=== PATIENT | male | born 1965 | race Caucasian/White ===

== ENCOUNTER 2016-07-08 17:44 | Emergency (ER) | payer MEDICAID, OTHER ==
[2016-07-08] MEDS ORDERED: HYDROmorphone 0.5 MG/0.5 ML Syringe IVPUSH ONE (19:39)
--- NOTE | 2016-07-08 19:41 | EDM.PDOC ---
[id number] 4d ABDOMINAL PAIN Time Seen by Provider: 07/08/16 18:10 Source: Reports: Patient, Family History Limitations: Reports: No limitations - History of Present Illness INITIAL COMMENTS - FREE TEXT/NARRATIVE: 51-year-old male who has had lower abdominal pain for the past 3 days, feel some urinary urgency but no dysuria. No radiation of pain to his back. Bowel seemed to be moving normally, no nausea or vomiting. Denies any fevers. He has no history of abdominal surgeries. No chest pain or shortness of breath. Location: suprapubic Quality: Reports: ache, cramping Severity: moderate Associated Symptoms: Denies: diarrhea, bloody stools, fever/chills, nausea/ vomiting - Related Data Allergies/ADRs: Allergies Allergy/AdvReac Type Severity Reaction Status Date / Time No Known Allergies Allergy Verified 02/29/16 01:38 Home Meds: Home Meds ALPRAZolam [Alprazolam] 1 mg PO BEDTIME 02/29/16 [History] Past Medical History - Past Health History Medical/Surgical History: Denies Medical/Surgical History Psychiatric History: Reports: Anxiety - Infectious Disease History Infectious Disease History: Reports: Chicken pox Social & Family History - Tobacco Use Smoking Status *Q: Light Tobacco Smoker Years of Tobacco use: 26 Packs/Tins Daily: 0.1 - Caffeine Use Caffeine Use: Reports: Soda - Recreational Drug Use Recreational Drug Use: No ED ROS GENERAL - Review of Systems Review Of Systems: See Below Constitutional: Denies: fever, chills, malaise Respiratory: Denies: Shortness of Breath Cardiovascular: Denies: Chest pain GI/Abdominal: Reports: Abdominal pain. Denies: Diarrhea, Nausea : Reports: frequency, urgency. Denies: dysuria Skin: Reports: no symptoms Neurological: Denies: Headache Psychiatric: Reports: Anxiety ED EXAM, GI/ABD - Physical Exam Exam: See Below Exam Limited By: No limitations General Appearance: alert, no apparent distress (Looks uncomfortable but not distressed) Eyes: bilateral: normal appearance (No jaundice) Respiratory/Chest: no respiratory distress, lungs clear Cardiovascular: regular rate, rhythm, tachycardia GI/Abdominal: soft, tenderness, guarding (Patient is tender across the suprapubic area with some guarding but no rebound tenderness) (Male) Exam: Other (Bladder scan was obtained, no urinary retention is present) Rectal (Males) Exam: Normal exam, Other ( rectum was empty) Neurological: alert Psychiatric: anxious Skin Exam: Warm, Dry Course - Vital Signs Last Recorded V/S: Last Vital Signs Temp 98.9 F 07/08/16 19:29 Pulse 66 07/08/16 20:41 Resp 16 07/08/16 20:41 BP 127/87 07/08/16 20:41 Pulse Ox 100 07/08/16 20:41 - Orders/Labs/Meds Orders: Active Orders 24 hr Category Date Time Status Abdomen Pelvis w Cont [CT] Stat Exams 07/08/16 19:40 Taken CULTURE URINE [RM] Stat Lab 07/08/16 20:39 Received Labs: Laboratory Tests 07/08/16 07/08/16 07/08/16 Range/Units 18:54 18:54 18:54 WBC 4.1 L (4.5-11.0) K/uL RBC 4.06 L (4.30-5.90) M/uL Hgb 14.2 (12.0-15.0) g/dL Hct 39.8 L (40.0-54.0) % MCV 98 (80-98) fL MCH 35 H (27-31) pg MCHC 36 (32-36) % Plt Count 105 L (150-400) K/uL Neut % (Auto) 54 (36-66) % Lymph % (Auto) 25 (24-44) % Russell % (Auto) 18 H (2-6) % Eos % (Auto) 2 (2-4) % Baso % (Auto) 1 (0-1) % Sodium 135 L (140-148) mmol/L Potassium 4.3 (3.6-5.2) mmol/L Chloride 96 L (100-108) mmol/L Carbon Dioxide 28 (21-32) mmol/L Anion Gap 15.3 H (5.0-14.0) mmol/L BUN 14 (7-18) mg/dL Creatinine 1.1 (0.8-1.3) mg/dL Est Cr Clr Drug Dosing 83.67 mL/min Estimated GFR (MDRD) > 60 (>60) Glucose 110 H (74-106) mg/dL Calcium 8.9 (8.5-10.1) mg/dL Total Bilirubin 1.7 H (0.2-1.0) mg/dL AST 144 H (15-37) U/L ALT 143 H (12-78) U/L Alkaline Phosphatase 65 (46-116) U/L Total Protein 7.2 (6.4-8.2) g/dL Albumin 3.6 (3.4-5.0) g/dL Globulin 3.6 H (2.3-3.5) g/dL Albumin/Globulin Ratio 1.0 L (1.2-2.2) Urine Color [place] Urine Appearance Clear Urine pH 5.0 (4.5-8.0) Ur Specific [place] 1.015 (1.008-1.030) Urine Protein Trace (NEGATIVE) mg/dL Urine Glucose (UA) Normal (NEGATIVE) mg/dL Urine Ketones 15 H (NEGATIVE) mg/dL Urine Occult Blood Negative (NEGATIVE) Urine Nitrite Positive H (NEGAITVE) Urine Bilirubin Moderate (NEGATIVE) Urine Urobilinogen >=12 H (NORMAL) mg/dL Ur Leukocyte Esterase Small (NEGATIVE) Urine RBC 0-5 (0-5) Urine WBC 0-5 (0-5) Ur Epithelial Cells Not seen Amorphous Sediment Not seen Urine Bacteria Few Urine Mucus Not seen Meds: Medications Discontinued Medications Generic Name Dose Route Start Last Admin Trade Name Freq PRN Reason Stop Dose Admin Hydromorphone HCl 0.5 mg 07/08/16 19:39 07/08/16 19:55 Dilaudid IVPUSH 07/08/16 19:40 0.5 mg ONETIME ONE Administration Sodium Chloride 1,000 mls @ 500 mls/hr 07/08/16 19:45 07/08/16 19:54 Normal Saline IV 500 mls/hr ASDIRECTED LUIS Administration Sodium Chloride 81 mls @ 3 mls/sec 07/08/16 20:13 07/08/16 20:24 Normal Saline IV 07/08/16 20:14 3 mls/sec ONETIME ONE Administration Iopamidol 136 ml 07/08/16 20:15 07/08/16 20:24 Isovue-300 (61%) IV 150 ml . DIRECTED LUIS Administration Sodium Chloride 10 ml 07/08/16 20:13 07/08/16 20:24 Saline Flush FLUSH 10 ml ONETIME PRN Administration PER RADIOLOGY PROTOCOL - Re-Assessments/Exams Free Text/Narrative Re-Assessment/Exam: 07/08/16 20:04 A UA was obtained which is nitrite positive but just a small amount bacteria. He does have urobilinogen in his urine. CBC shows a white count of 4100, CMP has a mildly elevated bilirubin at 1.7, kidney function is normal. Because of the intense pain a CT scan of the abdomen and pelvis was obtained with IV contrast. 07/08/16 20:59 CT did confirm fatty liver which would explain the elevated enzymes. No acute findings were found. Patient will be placed on Cipro 500 twice daily for the next 5-7 days pending urine culture. Departure - Departure Time of Disposition: 21:57 Disposition: Home, Self-Care 01 Condition: good Clinical Impression: Urinary tract infection Qualifiers: Urinary tract infection type: acute cystitis Hematuria presence: without hematuria Qualified Code(s): N30.00 - Acute cystitis without hematuria Abdominal pain Qualifiers: Abdominal location: lower abdomen, unspecified Qualified Code(s): R10.30 - Lower abdominal pain, unspecified Instructions: Abdominal Pain, Adult, [id number], Urinary Tract Infection, Adult Referrals: PCP,None [Primary Care Provider] - Forms: ED Department Discharge Care Plan Goals: Take antibiotic twice daily for at least 5 days. Drink lots of water, and return for recheck in 3-4 days if not improving satisfactorily, and return anytime sooner if worsening or concerns. - My Orders Last 24 Hours: My Active Orders 07/08/16 19:40 Abdomen Pelvis w Cont [CT] Stat 07/08/16 20:39 CULTURE URINE [RM] Stat - Assessment/Plan Last 24 Hours: My Active Orders 07/08/16 19:40 Abdomen Pelvis w Cont [CT] Stat 07/08/16 20:39 CULTURE URINE [RM] Stat
[2016-07-08] MEDS ORDERED: Sodium Chloride 0.9% 1,000 ML IV SCH (19:45)
[2016-07-08] MEDS ORDERED: Sodium Chloride 0.9% 10 ML Syringe FLUSH PRN (20:13)
[2016-07-08] MEDS ORDERED: Iopamidol 612 MG/ML 150 ML Bottle IV SCH (20:15)
[2016-07-08 20:43] VITALS: BP 127/87
== END 2016-07-08 21:57 | disposition home or self-care (01) ==
LOC: JP.ED 17:44
DX: N30.00 Acute cystitis without hematuria (principal); R10.30 Lower abdominal pain, unspecified; F41.9 Anxiety disorder, unspecified; F17.210 Nicotine dependence, cigarettes, uncomplicated
CPT/HCPCS: 36415; 74177; 80053; 81001; 85025; 87086; 96361; 96374; 99284; J1170; J7030; J7040; J7050